=== PATIENT | male | born 1965 | race Two or more races ===

== ENCOUNTER 2019-08-03 08:14 | Emergency (ER) | payer SELFPAY ==
[~2019-08-03] VITALS: Ht 152.4 cm; Wt 65.0 kg
[2019-08-03 10:40] VITALS: BP 154/69
== END 2019-08-03 10:45 | disposition home or self-care (01) ==
LOC: ER 08:14
DX: J06.9 Acute upper respiratory infection, unspecified (principal); J44.9 Chronic obstructive pulmonary disease, unspecified; R20.2 Paresthesia of skin; E11.9 Type 2 diabetes mellitus without complications
CPT/HCPCS: 71045; 82962; 99284